=== PATIENT | female | born 1980 | race Two or more races ===

== ENCOUNTER 2021-12-11 09:32 | Emergency (ER) | payer MEDICAID, OTHER ==
[~2021-12-11] VITALS: Ht 149.9 cm; Wt 77.1 kg
[2021-12-11 09:37] VITALS: BP 118/74
[2021-12-11] MEDS ORDERED: AMOX875T2 PO (10:18)
[2021-12-11] MEDS ORDERED: IBUP-1953 PO (10:18)
--- NOTE | 2021-12-11 10:33 | NUR ---
Patient discharged to home in stable condition. Written and verbal after care instructions given. Patient verbalizes understanding of instruction.
== END 2021-12-11 10:34 | disposition home or self-care (01) ==
LOC: ER 09:37
DX: M26.621 Arthralgia of right temporomandibular joint (principal); H92.01 Otalgia, right ear; E03.9 Hypothyroidism, unspecified; Z79.899 Other long term (current) drug therapy